=== PATIENT | male | born 1955 | race Caucasian/White ===

== ENCOUNTER 2017-07-22 00:56 | Inpatient (IN) | payer BC, MEDICAID ==
[2017-07-22] MEDS ORDERED: Sodium Chloride 0.9% 500 ML IV ONE (01:17)
[2017-07-22 01:40] LABS: % BASOPHILS 2.2 % (0.0-2.0); % EOSINOPHILS 5.1 % (0.0-5.0); % LYMPHOCYTES 37.9 % (20.0-50.0); % MONOCYTES 10.8 % (2.0-10.0); BASOPHILE ABSOLUTE 0.2 Th/cumm (0-0.2); EOSINOPHILE ABSOLUTE 0.4 Th/cmm (0.1-0.4); HEMATOCRIT 42.4 % (41.0-60); HEMOGLOBIN 14.6 gm/dL (12-16); LYMPHOCYTE ABSOLUTE 2.7 Th/cmm (1.5-3.0); MEAN CELL VOLUME 87.9 fl (80-99); MEAN CORPUSCULAR HEMOGLOBIN 30.4 pg (26.0-30.0); MEAN CORPUSCULAR HGB CONC 34.6 pg (28.0-36.0); MEAN PLATELET VOLUME 7.3 fl; MONOCYTE ABSOLUTE 0.8 Th/cmm (0.3-1.0); NEUTROPHILE ABSOLUTE 3.1 Th/cmm (1.8-8.0); PLATELET COUNT 300 Th/cmm (150-400); RED BLOOD COUNT 4.82 Mil/cmm (4.30-5.70); RED CELL DISTRIBUTION WIDTH 11.7 % (11.5-20.0); WHITE BLOOD COUNT 7.2 Th/cmm (4.8-10.8)
[2017-07-22 02:00] LABS: INR 1.03 (0.5-1.4); PROTHROMBIN TIME (TEST) 10.7 SECONDS (9.5-11.5)
[2017-07-22 02:04] LABS: ALB/GLOB RATIO 1.8 (1.0-1.8); ALBUMIN 4.4 gm/dL (4.2-5.5); ALKALINE PHOSPHATASE 79 U/L (34-104); AMYLASE SERUM 15 U/L (29-103); ANION GAP 11.6 (7.0-16.0); BILIRUBIN,TOTAL 0.3 mg/dL (0.3-1.0); BUN - UREA NITROGEN 23 mg/dL (7-25); CALCIUM SERUM 9.6 mg/dL (8.6-10.3); CARBON DIOXIDE 27.8 mEq/L (21.0-31.0); CHLORIDE 102 mEq/L (98-107); CHOLESTEROL 149 mg/dL (<200); CREATININE - SERUM 1.2 mg/dL (0.7-1.3); CREATININE KINASE 45 U/L (30-223); GFR AFRICAN-AMERICAN > 60.0 ml/min (>90); GFR NON AFRICAN-AMERICAN > 60.0 ml/min; GLUCOSE 169 mg/dL (70-105); HDL -HIGH DENSITY LIPOPROTEIN 26 mg/dL (23-92); LIPASE 237 U/L (11-82); POTASSIUM SERUM 3.4 mEq/L (3.5-5.1); SGOT 16 U/L (13-39); SGPT/ALT 33 U/L (7-52); SODIUM SERUM 138 mEq/L (136-145); TOTAL PROTEIN,SERUM 6.8 gm/dL (6.0-8.3); TRIGLYCERIDES 271 mg/dL (<150)
[2017-07-22 02:55] LABS: URINE MICROSCOPIC INDICATED? YES; URINE SOURCE CLEAN C
[2017-07-22 02:57] LABS: URINE BILIRUBIN NEGATIVE (NEGATIVE); URINE BLOOD TRACE (NEGATIVE); URINE GLUCOSE (UA) 100 mg/dL (NEGATIVE); URINE KETONE NEGATIVE (NEGATIVE); URINE LEUKOCYTE ESTERASE NEGATIVE (NEGATIVE); URINE NITRATE NEGATIVE (NEGATIVE); URINE PROTEIN NEGATIVE (NEGATIVE); URINE UROBILINOGEN 0.2 E.U./dL (0.2 - 1.0)
[2017-07-22 02:58] LABS: URINE CLARITY CLEAR (CLEAR); URINE COLOR YELLOW
[2017-07-22 03:02] LABS: URINE BACTERIA FEW /hpf (NONE SEEN); URINE EPITHELIAL CELLS FEW /lpf (FEW); URINE RBC 0-2 /hpf (0-5); URINE WBC 0-2 /hpf (0-5)
[2017-07-22] MEDS ORDERED: Potassium Chloride 20 mEq ER Tab PO ONE ×2 (03:02→03:09)
--- NOTE | 2017-07-22 03:02 | ED Physician Chart ---
ED Chief Complaint/HPI - Patient Information Date Seen:: 07/22/17 Time Seen:: 01:00 Chief Complaint:: Dizziness History of Present Illness:: onset x one day of dizziness, weakness, near-syncope, and vertigo; pt denies trauma, H/As, S/T, neck pain, C/P, SOB, Abd. Pain, A/N/V/D/C, fever, chills, or urinary s/s Allergies:: Allergies Allergy/AdvReac Type Severity Reaction Status Date / Time No Known Allergies Allergy Verified 07/22/17 01:19 Vitals:: Vital Signs - 8 hr 07/22/17 01:00 Temp 97.9 F HR 77 RR 18 BP 141/88 O2 Sat % 94 Historian:: Patient Review:: Nurse's Note Reviewed ED Review of Systems - Review of Systems General/Constitutional: No fever, No chills, No weight loss, Weakness, No diaphoresis, No edema, No loss of appetite Skin: No skin lesions, No rash, No bruising Head: No headache, No light-headedness Eyes: No loss of vision, No pain, No diplopia ENT: No earache, No nasal drainage, No sore throat, No tinnitus Neck: No neck pain, No swelling, No thyromegaly, No stiffness, No mass noted Cardio Vascular: No chest pain, No palpitations, No PND, No orthopnea, No edema Pulmonary: No SOB, No cough, No sputum, No wheezing GI: No nausea, No vomiting, No diarrhea, No pain, No melena, No hematochezia, No constipation, No hematemesis G/U: No dysuria, No frequency, No hematuria Musculoskeletal: No bone or joint pain, No back pain, No muscle pain Endocrine: No polyuria, No polydipsia Psychiatric: No prior psych history, No depression, No anxiety, No suicidal ideation, No homicidal ideation, No auditory hallucination, No visual hallucination Hematopoietic: No bruising, No lymphadenopathy Allergic/Immuno: No urticaria, No angioedema Neurological: Syncope, No focal symptoms, Weakness, No paresthesia, Headache, No seizure, Dizziness, No confusion, Vertigo ED Past Medical History - Past Medical History Obtainable: Yes Past Medical History: HTN, DM, Asthma/COPD, Dyslipidemia Family History: Diabetes Melitus, HTN Social History: Non Smoker, No Alcohol, No Drug Use, Surgical History: None Psychiatricy History: None Medication: Reviewed Family Medical History - Family Member Mother History Unknown: Yes ED Physical Exam - Physical Examination General/Constitutional: Awake, Well-developed, well-nourished, Alert, No distress, GCS 15, Non-toxic appearing, Ambulatory Head: Atraumatic Eyes: Lids, conjuctiva normal, PERRL, EOMI Skin: Nl inspection, No rash, No skin lesions, No ecchymosis, Well hydrated, No lymphadenopathy ENMT: External ears, nose nl, TM canals nl, Nasal exam nl, Lips, teeth, gums nl , Oropharynx nl, Tonsils nl Neck: Nontender, Full ROM w/o pain, No JVD, No nuchal rigidity, No bruit, No mass, No stridor Respiratory: Nl effort/Exclusion, Clear to Auscultation, No Wheeze/Rhonchi/Rales Cardio Vascular: RRR, No murmur, gallop, rubs, NL S1 S2, Carotid/Femoral/Distal pulses equal bilaterally GI: No tenderness/rebounding/guarding, No organomegaly, No hernia, Normal BS's, Nondistended, No mass/bruits, No McBurney tenderness : No CVA tenderness Extremities: No tenderness or effusion, Full ROM, normal strength in all extremities, No edema, Normal digits & nails Neuro/Psych: Alert/oriented, DTR's symmetric, Normal sensory exam, Normal motor strength, Judgement/insight normal, Mood normal, Normal gait, No focal deficits Misc: Normal back, No paraspinal tenderness ED Labs/Radiology/EKG Results - Lab Results Results: Laboratory Tests 07/22/17 07/22/17 07/22/17 01:25 01:25 01:25 WBC 7.2 RBC 4.82 Hgb 14.6 Hct 42.4 MCV 87.9 MCH 30.4 H MCHC Differential 34.6 RDW 11.7 Plt Count 300 MPV 7.3 Neutrophils % 44.0 Lymphocytes % 37.9 Monocytes % 10.8 H Eosinophils % 5.1 H Basophils % 2.2 H PT 10.7 INR 1.03 Sodium 138 Potassium 3.4 L Chloride 102 Carbon Dioxide 27.8 Anion Gap 11.6 BUN 23 Creatinine 1.2 Est GFR ( Amer) > 60.0 Est GFR (Non-Af Amer) > 60.0 BUN/Creatinine Ratio 19.2 Glucose 169 H Calcium 9.6 Total Bilirubin 0.3 AST 16 ALT 33 Alkaline Phosphatase 79 Creatine Kinase 45 Troponin I B-Natriuretic Peptide Total Protein 6.8 Albumin 4.4 Globulin 2.4 Albumin/Globulin Ratio 1.8 Triglycerides 271 H Cholesterol 149 LDL Cholesterol Direct 89 HDL Cholesterol 26 Amylase 15 L Lipase 237 H Urine Color Urine Clarity Urine pH Ur Specific [place] Urine Protein Urine Glucose (UA) Urine Ketones Urine Blood Urine Nitrate Urine Bilirubin Urine Urobilinogen Ur Leukocyte Esterase 07/22/17 07/22/17 07/22/17 01:25 01:25 02:05 WBC RBC Hgb Hct MCV MCH MCHC Differential RDW Plt Count MPV Neutrophils % Lymphocytes % Monocytes % Eosinophils % Basophils % PT INR Sodium Potassium Chloride Carbon Dioxide Anion Gap BUN Creatinine Est GFR ( Amer) Est GFR (Non-Af Amer) BUN/Creatinine Ratio Glucose Calcium Total Bilirubin AST ALT Alkaline Phosphatase Creatine Kinase Troponin I < 0.01 L B-Natriuretic Peptide 5.4 Total Protein Albumin Globulin Albumin/Globulin Ratio Triglycerides Cholesterol LDL Cholesterol Direct HDL Cholesterol Amylase Lipase Urine Color YELLOW Urine Clarity CLEAR Urine pH 6.0 Ur Specific [place] >= 1.030 Urine Protein NEGATIVE Urine Glucose (UA) 100 H Urine Ketones NEGATIVE Urine Blood TRACE Urine Nitrate NEGATIVE Urine Bilirubin NEGATIVE Urine Urobilinogen 0.2 Ur Leukocyte Esterase NEGATIVE Comments:: K+: 3.4 - Radiology Results Comments:: NAD - EKG Interpretations EKG Time:: 01:43 Rate & Rhythm: 82; NSR Comments:: old RI; non-specific st-t changes ED Septic Shock - . Is Septic Shock (SBP<90, OR Lactate>4 mmol\L) present?: No - <6hrs of presentation: Vital Signs: Vital Signs - 8 hr 07/22/17 01:00 Temp 97.9 F HR 77 RR 18 BP 141/88 O2 Sat % 94 ED Reassessment (Disposition) - Reassessment Reassessment Condition:: Improved - Diagnosis Diagnosis:: Dx: Dizziness; Vertigo; Near-Syncope; Syncope; TIA; Cardiac Arrythmia; DM; HTN; Hypokalemia - Aftercare/Follow up Instructions Aftercare/Follow-Up Instructions:: Counseled pt regarding lab results/diagnosis & need follow up, Counseled pt & family regarding lab results/diagnosis & need follow up - Patient Disposition Discharge/Transfer:: Acute Care w/in this hosp Accepting Physician:: Dr. Loera Time Called:: 229 Time Responded:: 02:30 Admitted to:: Telemetry Spoke to:: Dr. Loera Admitting Medical Physician:: Dr. Loera Condition at Disposition:: Stable, Improved
[2017-07-22 05:10] VITALS: BP 133/80
[2017-07-22 06:33] LABS: % BASOPHILS 0.9 % (0.0-2.0); % EOSINOPHILS 4.6 % (0.0-5.0); % LYMPHOCYTES 34.9 % (20.0-50.0); % NEUTROPHILS 51.6 % (40.0-80.0); BASOPHILE ABSOLUTE 0.1 Th/cumm (0-0.2); EOSINOPHILE ABSOLUTE 0.3 Th/cmm (0.1-0.4); HEMATOCRIT 40.7 % (41.0-60); HEMOGLOBIN 14.2 gm/dL (12-16); LYMPHOCYTE ABSOLUTE 2.6 Th/cmm (1.5-3.0); MEAN CELL VOLUME 87.3 fl (80-99); MEAN CORPUSCULAR HEMOGLOBIN 30.6 pg (26.0-30.0); MEAN PLATELET VOLUME 7.7 fl; MONOCYTE ABSOLUTE 0.6 Th/cmm (0.3-1.0); NEUTROPHILE ABSOLUTE 3.9 Th/cmm (1.8-8.0); PLATELET COUNT 286 Th/cmm (150-400); RED BLOOD COUNT 4.66 Mil/cmm (4.30-5.70); RED CELL DISTRIBUTION WIDTH 11.4 % (11.5-20.0); WHITE BLOOD COUNT 7.5 Th/cmm (4.8-10.8)
[2017-07-22 06:49] LABS: ANION GAP 12.4 (7.0-16.0); BUN - UREA NITROGEN 22 mg/dL (7-25); CALCIUM SERUM 9.1 mg/dL (8.6-10.3); CARBON DIOXIDE 24.1 mEq/L (21.0-31.0); CHLORIDE 106 mEq/L (98-107); CHOLESTEROL 137 mg/dL (<200); CREATININE - SERUM 1.1 mg/dL (0.7-1.3); GFR AFRICAN-AMERICAN > 60.0 ml/min (>90); GFR NON AFRICAN-AMERICAN > 60.0 ml/min; GLUCOSE 177 mg/dL (70-105); HDL -HIGH DENSITY LIPOPROTEIN 28 mg/dL (23-92); POTASSIUM SERUM 4.5 mEq/L (3.5-5.1); SODIUM SERUM 138 mEq/L (136-145); TRIGLYCERIDES 172 mg/dL (<150)
--- NOTE | 2017-07-22 08:04 | Diagnostic Imaging Report ---
Head CT without intravenous contrast Indication: Dizziness Comparison: None Technique: Axial images were obtained from the vertex to the skull base without IV contrast. Coronal reconstructions were made. Total DLP: 770, [id number] FINDINGS: Images of the brain obtained without contrast demonstrate no acute hemorrhage. No mass lesions identified. The ventricles and basal cisterns are patent. The rodriguez-white matter differentiation is preserved. There is no mass effect or midline shift. No skull fractures identified. No soft tissue swelling. Mild sinus disease is noted. Mucosal thickening of paranasal sinuses. IMPRESSION: No acute intracranial abnormality. Mucosal thickening of the paranasal sinuses.
--- NOTE | 2017-07-22 14:13 | Consultation ---
Consult Note - Consult Note Service Date: 07/22/17 Referring Physician: Boby Loera Consult Note: PHYSICIAN Consultation Note: Date of Admission: 07/22/17 Purpose of Consultation: Chief Complaint: Dizziness. History of Present Illness:62 year-old male presented to the ED for dizziness and near syncopal episodes. On initital evaluation, he was afebrile and WBC Count was WNL. There was CT scan of brain had revealed empty sella versus partially empty sella. sinusitis, Past Medical History: h/o colon CA (2003), Incisional hernia, DM2, Asthma, HTN.. Allergies Allergy/AdvReac Type Severity Reaction Status Date / Time No Known Allergies Allergy Verified 07/22/17 01:19 Vital Signs Temp 97.9 F 07/22/17 12:02 Pulse 79 07/22/17 12:02 Resp 20 07/22/17 12:02 BP 126/79 07/22/17 12:02 Pulse Ox 94 07/22/17 12:02 Intake & Output 07/21/17 07/22/17 07/22/17 18:59 06:59 18:59 Intake Total 1050 Balance 1050 Weight (lbs) 95.481 kg Intake: Intake, IV Amount 1000 Sodium Chloride 0.9% 500 500 ml @ Wide Open IV .Q0M ONE Rx#:[id number] Oral 50 Other: # Voids 1 # Bowel Movements 0 Weight Source Bedscale Laboratory Results - last 24 hr 07/22/17 07/22/17 07/22/17 01:25 01:25 01:25 WBC 7.2 RBC 4.82 Hgb 14.6 Hct 42.4 MCV 87.9 MCH 30.4 H MCHC Differential 34.6 RDW 11.7 Plt Count 300 MPV 7.3 Neutrophils % 44.0 Lymphocytes % 37.9 Monocytes % 10.8 H Eosinophils % 5.1 H Basophils % 2.2 H PT 10.7 INR 1.03 Sodium 138 Potassium 3.4 L Chloride 102 Carbon Dioxide 27.8 Anion Gap 11.6 BUN 23 Creatinine 1.2 Est GFR ( Amer) > 60.0 Est GFR (Non-Af Amer) > 60.0 BUN/Creatinine Ratio 19.2 Glucose 169 H Calcium 9.6 Total Bilirubin 0.3 AST 16 ALT 33 Alkaline Phosphatase 79 Creatine Kinase 45 Troponin I B-Natriuretic Peptide Total Protein 6.8 Albumin 4.4 Globulin 2.4 Albumin/Globulin Ratio 1.8 Triglycerides 271 H Cholesterol 149 LDL Cholesterol Direct 89 HDL Cholesterol 26 Amylase 15 L Lipase 237 H TSH Urine Source Urine Color Urine Clarity Urine pH Ur Specific [place] Urine Protein Urine Glucose (UA) Urine Ketones Urine Blood Urine Nitrate Urine Bilirubin Urine Urobilinogen Ur Leukocyte Esterase Urine RBC Urine WBC Ur Epithelial Cells Urine Bacteria Urine Mucus 07/22/17 07/22/17 07/22/17 01:25 01:25 02:05 WBC RBC Hgb Hct MCV MCH MCHC Differential RDW Plt Count MPV Neutrophils % Lymphocytes % Monocytes % Eosinophils % Basophils % PT INR Sodium Potassium Chloride Carbon Dioxide Anion Gap BUN Creatinine Est GFR ( Amer) Est GFR (Non-Af Amer) BUN/Creatinine Ratio Glucose Calcium Total Bilirubin AST ALT Alkaline Phosphatase Creatine Kinase Troponin I < 0.01 L B-Natriuretic Peptide 5.4 Total Protein Albumin Globulin Albumin/Globulin Ratio Triglycerides Cholesterol LDL Cholesterol Direct HDL Cholesterol Amylase Lipase TSH Urine Source CLEAN C Urine Color YELLOW Urine Clarity CLEAR Urine pH 6.0 Ur Specific [place] >= 1.030 Urine Protein NEGATIVE Urine Glucose (UA) 100 H Urine Ketones NEGATIVE Urine Blood TRACE Urine Nitrate NEGATIVE Urine Bilirubin NEGATIVE Urine Urobilinogen 0.2 Ur Leukocyte Esterase NEGATIVE Urine RBC 0-2 H Urine WBC 0-2 Ur Epithelial Cells FEW Urine Bacteria FEW Urine Mucus MODERATE 07/22/17 07/22/17 07/22/17 06:05 06:05 06:05 WBC 7.5 RBC 4.66 Hgb 14.2 Hct 40.7 L MCV 87.3 MCH 30.6 H MCHC Differential 35.0 RDW 11.4 L Plt Count 286 MPV 7.7 Neutrophils % 51.6 Lymphocytes % 34.9 Monocytes % 8.0 Eosinophils % 4.6 Basophils % 0.9 PT INR Sodium 138 Potassium 4.5 Chloride 106 Carbon Dioxide 24.1 Anion Gap 12.4 BUN 22 Creatinine 1.1 Est GFR ( Amer) > 60.0 Est GFR (Non-Af Amer) > 60.0 BUN/Creatinine Ratio 20.0 Glucose 177 H Calcium 9.1 Total Bilirubin AST ALT Alkaline Phosphatase Creatine Kinase Troponin I B-Natriuretic Peptide Total Protein Albumin Globulin Albumin/Globulin Ratio Triglycerides 172 H Cholesterol 137 LDL Cholesterol Direct 84 HDL Cholesterol 28 Amylase Lipase TSH 2.83 Urine Source Urine Color Urine Clarity Urine pH Ur Specific [place] Urine Protein Urine Glucose (UA) Urine Ketones Urine Blood Urine Nitrate Urine Bilirubin Urine Urobilinogen Ur Leukocyte Esterase Urine RBC Urine WBC Ur Epithelial Cells Urine Bacteria Urine Mucus Home Medication Medication Instructions Recorded Type Aspirin [Ecotrin] 81 mg PO DAILY 07/22/17 History Fenofibrate,Micronized 134 mg PO DAILY 07/22/17 History [Fenofibrate] Fluticasone/Salmeterol [Advair 1 puff IH BID 07/22/17 History 100-50 Diskus] Liraglutide [Victoza] 12 mg SC DAILY 07/22/17 History Losartan Potassium [Cozaar] 50 mg PO DAILY 07/22/17 History Metformin HCl [Metformin HCl ER] 500 mg PO BID 07/22/17 History Sitagliptin Phos/Metformin HCl 1 tab PO BID 07/22/17 History [Janumet 50-500 mg Tablet] Current Medications Generic Name Dose Route Start Last Admin Trade Name Freq PRN Reason Stop Dose Admin Aspirin 81 mg 07/23/17 09:00 Ecotrin PO 09/21/17 08:59 DAILY MARIO Fenofibrate 134 mg 07/23/17 09:00 Tricor PO 09/21/17 08:59 DAILY MARIO Pantoprazole Sodium 40 mg 07/22/17 09:00 07/22/17 08:50 Protonix IVP 09/20/17 08:59 40 mg DAILY MARIO Administration Review of Systems: A 12 point ROS was reviewed with the pertinent positive and negatives noted in the HPI. General/Constitutional: No fever, No chills, No weight loss, Weakness, No diaphoresis, No edema, No loss of appetite Skin: No skin lesions, No rash, No bruising Head: No headache, No light-headedness Eyes: No loss of vision, No pain, No diplopia ENT: No earache, No nasal drainage, No sore throat, No tinnitus Neck: No neck pain, No swelling, No thyromegaly, No stiffness, No mass noted Cardio Vascular: No chest pain, No palpitations, No PND, No orthopnea, No edema Pulmonary: No SOB, No cough, No sputum, No wheezing GI: No nausea, No vomiting, No diarrhea, No pain, No melena, No hematochezia, No constipation, No hematemesis G/U: No dysuria, No frequency, No hematuria Musculoskeletal: No bone or joint pain, No back pain, No muscle pain Endocrine: No polyuria, No polydipsia Psychiatric: No prior psych history, No depression, No anxiety, No suicidal ideation, No homicidal ideation, No auditory hallucination, No visual hallucination Hematopoietic: No bruising, No lymphadenopathy Allergic/Immuno: No urticaria, No angioedema Neurological: Syncope, No focal symptoms, Weakness, No paresthesia, Headache, No seizure, Dizziness, No confusion, Vertigo Social History Smoking Status Never smoker Family Medical History DM2, CHF. Physical Exam: General: Comfortable, not in any acute distress, WN WD. HEENT: HEAD:Normocephalic, atraumatic. Oral cavity: moist pink tongue, eyes: no pallor, no icterus, pupil PERRLA. Neck: Supple, no JVD, no carotid bruit, Pupil PERRLA. Cardio: S1 and S2 WNL. No murmur. Pupil PERRLA. Respiratory: Vesicular breath sounds, No crackles, no wheezing. Abdominal: Soft NT ND BS. Genital/Urinary: Deferred. Extremities: NCCE. Neurological: AAOx3, no more dizziness. Romberg's test negative, HEEL to TOE test negative. Assessment: 1. Sinusitis. 2. Dizziness. Resolved, no sign of any infection. 3. h/o colon CA (2004). 4. Incisional hernia.' 5. DM2. 6. Asthma. 7. HTN. Plan: Will give nasonex or Flonase. Neurology consult as inpatient or outpatient. Thank you, Dr Loera for involving me in taking care of this patient, Signed, Beny Muir M.D. [id number]
--- NOTE | 2017-07-22 16:35 | History & Physical ---
ADMIT DATE: 07/22/2017 HISTORY OF PRESENT ILLNESS: The patient has been dizzy for the last one day complaining of near syncopal episode and vertigo. Denies any history of trauma. No neck pain, no chest pain, no other problem. Poor historian. Patient's nurse's notes were noted. REVIEW OF SYSTEMS: Essentially negative except dizziness and near syncope. PAST MEDICAL HISTORY: Hypertension, diabetes, asthma, COPD and hyperlipidemia. PHYSICAL EXAMINATION: GENERAL: The patient is awake, alert, not in acute distress. VITAL SIGNS: Stable. HEAD: Normal. ENT: Normal. NECK: Supple and nontender. LUNGS: Clear. CARDIOVASCULAR SYSTEM: S1 and S2 heard. ABDOMEN: Soft. Bowel sounds are heard. CENTRAL NERVOUS SYSTEM: Decreased sensorium. DIAGNOSES: Acute near syncopal episode; old myocardial infarction, nonspecific; history of vertigo; history of transient ischemic attack, rule out cardiac arrhythmia; diabetes; history of hypertension and hypokalemia. PLAN: The patient is being admitted. I will go ahead and get a complete workup including cardiac and neuro. I will follow the patient. JOB# [id number]
[2017-07-23] MEDS ORDERED: Fenofibrate, Micronized 134 mg Cap PO SCH (09:00)
== END 2017-07-22 19:33 | disposition home or self-care (01) | DRG 312 ==
LOC: ER 00:56 → MSI 03:00
PROVIDERS: ADMIT Internal Medicine; ATTEND Internal Medicine
DX: R55 Syncope and collapse (principal); R42 Dizziness and giddiness; I10 Essential (primary) hypertension; E11.9 Type 2 diabetes mellitus without complications; J44.9 Chronic obstructive pulmonary disease, unspecified; E78.5 Hyperlipidemia, unspecified; E87.6 Hypokalemia; I49.9 Cardiac arrhythmia, unspecified; J32.9 Chronic sinusitis, unspecified; K43.2 Incisional hernia without obstruction or gangrene; Z83.3 Family history of diabetes mellitus; Z82.49 Family history of ischemic heart disease and other diseases of the circulatory system; Z71.89 Other specified counseling; I25.2 Old myocardial infarction; Z85.038 Personal history of other malignant neoplasm of large intestine; Z79.899 Other long term (current) drug therapy; Z86.73 Personal history of transient ischemic attack (TIA), and cerebral infarction without residual deficits
CPT/HCPCS: 36415-UA; 70450-TC; 80048-TC; 80053-TC; 80061-TC; 81001-TC; 82150-TC; 82550-TC; 83690-TC; 83880-TC; 84443-TC; 84484-TC; 85025-TC; 85610-TC; 93005; 94760; 96374; C9113; J2405; J7040